=== PATIENT | female | born 1985 | race Caucasian/White ===

== ENCOUNTER 2022-01-28 09:37 | Emergency (ER) | payer MEDICAID, OTHER ==
[~2022-01-28] VITALS: Ht 162.6 cm; Wt 65.0 kg
[2022-01-28] MEDS ORDERED: HALO0.5T2 GT (09:41)
[2022-01-28 10:23] LABS: BASOPHILS % 0.5 % (0.0-2.0); EOSINOPHILS % 0.5 % (0.0-5.0); HEMATOCRIT. 40.5 % (36.0-48.0); HEMOGLOBIN. 13.2 g/dL (12.0-16.0); LYMPHOCYTES % 18.9 % (20.0-50.0); MEAN CORPUSCULAR HEMOGLOBIN 28.8 pg (28.0-32.0); MEAN CORPUSCULAR VOLUME 88.4 fL (81.0-99.0); MEAN PLATELET VOLUME 10.2 fl (7.4-10.4); NEUTROPHILS % 73.1 % (40.0-76.0); PLATELET 197 x1000/uL (130-400); RED BLOOD CELL COUNT 4.58 mill/uL (4.2-5.4); RED CELL DISTRIBUTION WIDTH 14.6 % (11.6-14.6)
[2022-01-28 10:30] LABS: CHLORIDE 105 mEq/L (98-107)
[2022-01-28 10:36] LABS: HCG SCREEN NEGATIVE
[2022-01-28 13:53] VITALS: BP 111/72
== END 2022-01-28 13:53 | disposition home or self-care (01) ==
LOC: ER 09:37
DX: R07.89 Other chest pain (principal)
CPT/HCPCS: 36415; 71045; 80053; 83880; 84484; 84703; 85025; 93005; 99285; Z7610